=== PATIENT | male | born 2000 | race Caucasian/White ===

== ENCOUNTER 2024-03-05 22:47 | Emergency (ER) | payer MEDICAID, OTHER ==
[~2024-03-05] VITALS: Ht 162.6 cm; Wt 59.0 kg
[2024-03-05 23:17] VITALS: BP 126/70; TEMP 98.5
[2024-03-06] MEDS ORDERED: ALBU18HF2 INH (00:22)
[2024-03-06 00:40] VITALS: O2SAT 98
== END 2024-03-06 00:41 | disposition home or self-care (01) ==
LOC: ER 22:48
DX: R05.9 Cough, unspecified (principal)
CPT/HCPCS: 71045-TC